=== PATIENT | female | born 1950 | race Caucasian/White ===

== ENCOUNTER → 2024-03-21 15:21 | Outpatient (BNVA) | payer OTHER, SELFPAY | PROVIDERS: Family Provider Family Medicine; PCP Family Medicine; Visit Provider Nurse Practitioner Family | DX: Z13.6 Encounter for screening for cardiovascular disorders (principal); I73.9 Peripheral vascular disease, unspecified; I83.009 Varicose veins of unspecified lower extremity with ulcer of unspecified site; L97.909 Non-pressure chronic ulcer of unspecified part of unspecified lower leg with unspecified severity | CPT/HCPCS: 80053; 80061; 83036; 84443; 85025 ==

== ENCOUNTER → 2024-04-06 15:34 | Outpatient (BNVA) | payer MEDICARE, OTHER, SELFPAY | PROVIDERS: Family Provider Family Medicine; PCP Family Medicine; Visit Provider Nurse Practitioner | DX: D64.9 Anemia, unspecified (principal) | CPT/HCPCS: 83540 ==

== ENCOUNTER 2024-08-31 08:25 | Emergency (ER) | payer OTHER, MEDICARE, SELFPAY ==
[2024-08-31 08:41] VITALS: BP 145/95; PULSE 93; RESP 18; TEMP 37.1; O2SAT 92; BMI 24.3
--- NOTE | 2024-08-31 08:45 | XRR_ITS ---
PROCEDURE INFORMATION: Exam: XR Chest Exam date and time: 08/31/2024 8:48 AM Age: 74 years old Clinical indication: Cough TECHNIQUE: Imaging protocol: Radiologic exam of the chest. Views: 2 views. COMPARISON: No relevant prior studies available. FINDINGS: Lungs: Mild hyperinflation suggesting COPD. No consolidation. Pleural spaces: Unremarkable. No pleural effusion. No pneumothorax. Heart/Mediastinum: Calcification of the aortic arch.. No cardiomegaly. Bones/joints: No acute osseous abnormality. Moderate degenerative changes of the shoulders right greater than left. Degenerative changes of the thoracic spine. XR/XR chest 2V* [id number] IMPRESSION: No acute cardiopulmonary disease.
--- NOTE | 2024-08-31 08:46 | ED_ITS ---
HPI - URI/Sore Throat General: Chief Complaint: Upper Respiratory Infection Stated Complaint: couphing, wheezing Time Seen by Provider: 08/31/24 08:45 History of Present Illness: This patient is a 74-year-old presenting with cough for a week. She is overall healthy and active. [place] with her . She has had cough for a week and since last night it has become tightness in her chest and a very persistent cough. She is starting to feel overall worse. Her also was sick with similar symptoms and worsened. He has been diagnosed with pneumonia. She denies any history of lung problems. She has never been a smoker. She does have a history of ulcerative colitis but is not on any current medications for that. She has not had a flare in some time. Related Data Home Medications Medication Instructions Recorded Confirmed Lactobacillus acidophilus 10 mg PO DAILY 08/31/24 08/31/24 (Acidophilus capsule) acetaminophen 500 mg tablet 1,000 mg PO Q6H PRN Pain 08/31/24 08/31/24 ascorbic acid (vitamin C) 1,000 mg 2,000 mg PO DAILY 08/31/24 08/31/24 tablet (Vitamin C) [id number]-[id number] 1 20 ml PO Q4H PRN cough and cold 08/31/24 mg-2.5 mg-5 mg/5 mL oral solution (Cold and Cough Elixir) cimetidine 200 mg tablet 200 mg PO TID 08/31/24 08/31/24 cyanocobalamin (vitamin B-12) 500 500 mcg PO DAILY 08/31/24 08/31/24 mcg tablet (Vitamin B-12) echinacea 400 mg capsule 400 mg PO DAILY 08/31/24 08/31/24 elderberry fruit 350 mg capsule 1,050 mg PO DAILY 08/31/24 08/31/24 garlic 1,000 mg capsule 1,000 mg PO DAILY 08/31/24 08/31/24 joselo (Zingiber officinalis) 550 550 mg PO DAILY 08/31/24 08/31/24 mg capsule ginseng 100 mg capsule 200 mg PO DAILY 08/31/24 08/31/24 lysine 500 mg tablet 500 mg PO DAILY 08/31/24 08/31/24 magnesium oxide 400 mg PO DAILY 08/31/24 08/31/24 omega [id number]-ixf-wbd-fish oil 1,000 mg 1 cap PO DAILY 08/31/24 08/31/24 (120 mg-180 mg) capsule (Fish Oil) turmeric root extract 500 mg 500 mg PO DAILY 08/31/24 08/31/24 capsule vitamin B complex 1 tab PO DAILY 08/31/24 08/31/24 vitamin E (dl, acetate) 180 mg 180 mg PO DAILY 08/31/24 08/31/24 (400 unit) capsule zinc citrate, zinc oxide 50 mg 50 mg PO DAILY 08/31/24 08/31/24 tablet Previous Rx's Medication Instructions Recorded albuterol sulfate 90 mcg/actuation 2 inh inhalation Q4H PRN shortness 08/31/24 aerosol inhaler of breath or wheezing #6.7 grams doxycycline hyclate 100 mg capsule 100 mg PO BID 10 days #20 caps 08/31/24 Allergies Allergy/AdvReac Type Severity Reaction Status Date / Time Penicillins Allergy ALGY-Hives Verified 05/11/24 15:34 PFS ED PFSH: Medical History Hx of ulcerative colitis Surgical History Hx of hysterectomy, total 1984 Family History Mother Stroke Social History Smoking and tobacco/nicotine status: never used tobacco/nicotine Second hand smoke exposure: Yes Alcohol intake: never Substance/Drug Use: never Adopted: No Caregiver/support person: No Lives independently: Yes Household members: spouse Housing: House Marital status: Number of children: 2 Highest education level completed: High School Graduate service: No Current occupational status: unemployed Physical Exam Const: COMMON NORMALS: no acute distress, patient oriented x3, no limitations and alert GENERAL APPEARANCE: cooperative and comfortable HENMT: HEAD & SCALP: normal to inspection FACE & SINUS: normal facial exam Eye: GENERAL EYE: appearance normal, both eyes and all related structures Neck/C-Spine: COMMON NORMALS: supple, no meningeal signs and no JVD Chest: COMMONS NORMALS: normal inspection of the chest Resp: COMMON NORMALS: normal respiratory effort, No use of accessory muscles and clear to auscultation bilaterally AUSCULTATION: clear to auscultation bilaterally OTHER: Persistent cough which sounds dry. Cardio: COMMON NORMALS: no JVD, regular rate, regular rhythm and No murmurs present (Cardio) RATE: regular rate RHYTHM: regular rhythm GI: COMMON NORMALS: Normal to inspection, nondistended, normoactive bowel sounds present, Soft to palpation and non-tender INSPECTION: Yes normal to inspection AUSCULTATION: Yes normoactive bowel sounds PALPATION: Yes Soft to palpation Back/Pelvis: COMMON NORMALS: thoracic and lumbar spine normal to inspection Extremity: COMMON NORMALS: normal to inspection Neuro: COMMON NORMALS: patient oriented x3, moves all extremities, no focal motor deficits and no sensory deficits noted SENSORIUM/ORIENTATION: Yes alert MENINGEAL SIGNS: Yes no meningeal signs Psych: COMMON NORMALS: mental status grossly normal, cooperative and normal affect Skin: COMMON NORMALS: no rashes or lesions noted and turgor normal GENERAL SKIN EXAM: no rashes or lesions noted and turgor normal Course Vital Signs: Vital signs: Vital Signs Temperature 98.8 F 08/31/24 08:41 Pulse Rate 89 08/31/24 10:12 Respiratory Rate 18 08/31/24 09:09 Blood Pressure 160/83 08/31/24 10:12 Pulse Oximetry 93 08/31/24 10:12 Oxygen Delivery Me thod Room Air 08/31/24 09:09 MDM - URI/Sore Throat Medical Decision Making Symptoms of cough for over a week. Now progressing to more severe cough and chest tightness. No cardiac history. The tightness is constant and associated with a cough. No cardiac history no prior pulmonary history. Plan for chest x- ray, breathing treatment. Consider antibiotics. Concern for bacterial bronchitis following a viral infection so will start doxycycline. Discussed symptom management and outpatient follow up. Lab Data Radiology Impressions Chest X-Ray 08/31/24 08:45 IMPRESSION: No acute cardiopulmonary disease. All radiology interpretation(s) finalized by discharge Discharge Plan Discharge Patient Disposition: Home Clinical Impression: Bronchitis Condition: Stable Prescriptions: New doxycycline hyclate 100 mg capsule 100 mg PO BID 10 Days Qty: 20 0RF albuterol sulfate 90 mcg/actuation HFA aerosol inhaler 2 inh inhalation Q4H PRN (Reason: shortness of breath or wheezing) Qty: 6.7 0RF No Action acetaminophen [Tylenol Ex Str Rapid Release] 500 mg Tablet 1,000 mg PO Q6H PRN (Reason: Pain) Cold and Cough Elixir 1-2.5-5 mg/5 mL Solution 20 ml PO Q4H PRN (Reason: cough and cold) ascorbic acid (vitamin C) [Vitamin C] 1,000 mg Tablet 2,000 mg PO DAILY B Complex Tablet Extended Release 1 tab PO DAILY ginseng 100 mg Capsule 200 mg PO DAILY echinacea 400 mg Capsule 400 mg PO DAILY Rx Instructions: administer with meals garlic 1,000 mg Capsule 1,000 mg PO DAILY cyanocobalamin (vitamin B-12) [Vitamin B-12] 500 mcg Tablet 500 mcg PO DAILY cimetidine [Tagamet] 200 mg Tablet 200 mg PO TID Rx Instructions: administer with meals Acidophilus Capsule 10 mg PO DAILY lysine 500 mg Tablet 500 mg PO DAILY joselo (Zingiber officinalis) 550 mg Capsule 550 mg PO DAILY vitamin E (dl, acetate) 180 mg (400 unit) Capsule 180 mg PO DAILY omega 3-vmf-qbi-fish oil [Fish Oil] 1,000 (120-180) mg Capsule 1 cap PO DAILY turmeric root extract 500 mg Capsule 500 mg PO DAILY magnesium oxide 400 mg magnesium Tablet 400 mg PO DAILY zinc citrate, zinc oxide 50 mg Tablet 50 mg PO DAILY elderberry fruit 350 mg Capsule 1,050 mg PO DAILY Discharge Orders: Discharge ED (Routine); Ordered 08/31/24 Ordered By: Dora Alberto Referrals: Addison Rhodes [Primary Care Provider] - Patient Instructions: Opioid Safety, Pain Management Coding Level of Care Code ED Sales And Distribution Clerk for Samantha Álvarez
[2024-08-31] MEDS: ipratropium-albuterol 3 mL Neb INHALATION (09:05)
[2024-08-31 09:09] VITALS: PULSE 84; RESP 18; O2SAT 96
[2024-08-31 10:12] VITALS: BP 160/83; PULSE 89; O2SAT 93
== END 2024-08-31 10:14 | disposition home or self-care (01) ==
PROVIDERS: Emergency Provider Emergency Medicine; Family Provider Family Medicine; PCP Family Medicine
DX: J40 Bronchitis, not specified as acute or chronic (principal)
CPT/HCPCS: 71046; 94640; 99283